=== PATIENT | female | born 1935 | race Caucasian/White ===

== ENCOUNTER 2018-03-26 09:20 | Emergency (ER) | payer MEDICARE, OTHER ==
[2018-03-26 09:34] VITALS: BP 163/84
[2018-03-26] MEDS ORDERED: Sodium Chloride 0.9% 1,000 ML IV STA (09:45)
[2018-03-26] MEDS ORDERED: Sodium Chloride 0.9% 10 ML Syringe FLUSH PRN (09:55)
[2018-03-26] MEDS ORDERED: Diatrizoate Meglumine/Diatrizoate Sodium 37% 120 ML Bottle PO ONE (09:55)
[2018-03-26] MEDS ORDERED: Iopamidol 612 MG/ML 100 ML Bottle IVPUSH ONE (09:55)
[2018-03-26] MEDS: Sodium Chloride 0.9% 10 ML Syringe FLUSH PRN ×2 (09:55→11:09)
--- NOTE | 2018-03-26 10:57 | EDM.PDOC ---
ED HPI GENERAL MEDICAL PROBLEM - General Chief Complaint: General Stated Complaint: ABDOMINAL ISSUES AND HBP Time Seen by Provider: 03/26/18 09:36 Source of Information: Reports: Patient, Family History Limitations: Reports: No Limitations - History of Present Illness INITIAL COMMENTS - FREE TEXT/NARRATIVE: The patient presents with nausea, vomiting and diarrhea. She also has some abdominal pain at times. This has been going on for the past 3 weeks. This all comes and goes. She also feels lightheaded at times. She is more lightheaded the past few days. She mostly feels it when she gets up. She has no fever, chills, cough, congestion, runny nose, headache, chest pain, shortness of breath, or dysuria. There has been no changes to her medications. She did not eat anything bad that she knows of. Eating or drinking does not affect it in any way. It is random when it comes. Onset: Gradual Duration: Week(s): (3) Location: Reports: Abdomen Quality: Reports: Sharp Severity: Mild Improves with: Reports: None Worsens with: Reports: None Associated Symptoms: Reports: Nausea/Vomiting. Denies: Chest Pain, Fever/Chills , Headaches, Shortness of Breath - Related Data Allergies Allergy/AdvReac Type Severity Reaction Status Date / Time No Known Allergies Allergy Verified 03/26/18 09:28 Home Meds: Home Meds Lisinopril 5 mg PO DAILY 07/29/15 [History] [place] 500 mg PO DAILY 12/30/15 [History] Brimonidine [Alphagan 0.2% Ophth Soln] 1 drop EYELF BEDTIME 12/30/15 [History] Calcium/Magnesium/Vit D3 [Calcium 500 MG] 1 each PO DAILY 12/30/15 [History] Cholecalciferol (Vitamin D3) [Vitamin D-3] 2,000 unit PO DAILY 12/30/15 [History ] Eye Drop. 1 drop EYELF BID 12/30/15 [History] Multivitamin [One Daily] 1 each PO DAILY 12/30/15 [History] [place]-3/DHA/Epa/Fish Oil [[place] 3 500 Softgel] 1 each PO DAILY 12/30/15 [History ] Ondansetron [Zofran ODT] 4 mg PO Q6H PRN #20 tab.dis 03/26/18 [Rx] Sulfamethoxazole/Trimethoprim [Bactrim Ds Tablet] 1 each PO BID #6 tablet [Rx] Past Medical History HEENT History: Reports: Cataract Cardiovascular History: Reports: Hypertension Genitourinary History: Reports: Urinary Incontinence Musculoskeletal History: Reports: Osteoarthritis - Infectious Disease History Infectious Disease History: Reports: Chicken Pox, Measles, Mumps - Past Surgical History HEENT Surgical History: Reports: Cataract Surgery Neurological Surgical History: Reports: C-Spine Social & Family History - Family History Family Medical History: Noncontributory - Tobacco Use Smoking Status *Q: Never Smoker - Caffeine Use Caffeine Use: Reports: Coffee, Tea - Recreational Drug Use Recreational Drug Use: No - Living Situation & Occupation Living situation: Reports: , Alone ED ROS GENERAL - Review of Systems Review Of Systems: See Below Constitutional: Reports: No Symptoms HEENT: Reports: No Symptoms Respiratory: Reports: No Symptoms Cardiovascular: Reports: Lightheadedness Endocrine: Reports: No Symptoms GI/Abdominal: Reports: Abdominal Pain, Diarrhea, Nausea, Vomiting : Reports: No Symptoms Musculoskeletal: Reports: No Symptoms Skin: Reports: No Symptoms Neurological: Reports: No Symptoms ED EXAM, GENERAL - Physical Exam Exam: See Below Exam Limited By: No Limitations General Appearance: Alert, No Apparent Distress Ears: Normal External Exam Nose: Normal Inspection Head: Atraumatic, Normocephalic Neck: Normal Inspection Respiratory/Chest: No Respiratory Distress, Lungs Clear, Normal Breath Sounds Cardiovascular: Regular Rate, Rhythm, No Edema, No Murmur GI/Abdominal: Soft, No Organomegaly, No Mass, Tender (Mild pain upon palpation to the LUQ) Extremities: Normal Inspection Neurological: Alert, Oriented, No Motor/Sensory Deficits EKG INTERPRETATION EKG Date: 03/26/18 Time: 09:57 Rhythm: NSR Rate (Beats/Min): 72 [place]: Normal P-Wave: Present QRS: RBBB ST-T: Normal QT: Normal Course - Vital Signs Last Recorded V/S: Last Vital Signs Temp 99.2 F 03/26/18 09:29 Pulse 72 03/26/18 09:29 Resp 18 03/26/18 09:29 BP 163/84 H 03/26/18 09:29 Pulse Ox 99 03/26/18 09:29 - Orders/Labs/Meds Orders: Active Orders 24 hr Category Date Time Status EKG Documentation Completion [RC] ASDIRECTED Care 03/26/18 09:46 Active Peripheral IV Care [RC] . DIRECTED Care 03/26/18 09:45 Active UA W/MICROSCOPIC [URIN] Stat Lab 03/26/18 10:35 Ordered Sodium Chloride 0.9% [Saline Flush] Med 03/26/18 09:45 Active 10 ml FLUSH ASDIRECTED PRN Sodium Chloride 0.9% [Saline Flush] Med 03/26/18 09:55 Active 10 ml FLUSH ONETIME PRN Peripheral IV Insertion Adult [OM.PC] Stat Oth 03/26/18 09:45 Ordered EKG 12 Lead [EK] Stat Ther 03/26/18 09:46 Ordered Medication Orders Sodium Chloride (Saline Flush) 10 ml FLUSH ASDIRECTED PRN PRN Reason: Keep Vein Open Last Admin: 03/26/18 11:09 Dose: 10 ml Admin: 03/26/18 09:55 Dose: 10 ml Sodium Chloride (Saline Flush) 10 ml FLUSH ONETIME PRN PRN Reason: IV FLUSH Labs: Laboratory Tests 03/26/18 03/26/18 03/26/18 Range/Units 09:35 09:35 10:35 WBC 7.09 (3.98-10.04) K/mm3 RBC 4.52 (3.98-5.22) M/mm3 Hgb 13.2 (11.2-15.7) gm/L Hct 40.8 (34.1-44.9) % MCV 90.3 (79.4-94.8) fl MCH 29.2 (25.6-32.2) pg MCHC 32.4 (32.2-35.5) g/dl RDW Std Deviation 41.5 (36.4-46.3) fL Plt Count 254 (182-369) K/mm3 MPV 10.1 (9.4-12.3) fl Neut % (Auto) 73.0 H (34.0-71.1) % Lymph % (Auto) 16.8 L (19.3-51.7) % [place] % (Auto) 8.5 (4.7-12.5) % Eos % (Auto) 1.3 (0.7-5.8) Baso % (Auto) 0.1 (0.1-1.2) % Neut # (Auto) 5.18 (1.56-6.13) K/mm3 Lymph # (Auto) 1.19 (1.18-3.74) K/mm3 [place] # (Auto) 0.60 H (0.24-0.36) K/mm3 Eos # (Auto) 0.09 (0.04-0.36) K/mm3 Baso # (Auto) 0.01 (0.01-0.08) K/mm3 Sodium 140 (136-145) mEq/L Potassium 4.1 (3.5-5.1) mEq/L Chloride 104 (98-107) mEq/L Carbon Dioxide 31 (21-32) mEq/L Anion Gap 9.1 (5-15) BUN 17 (7-18) mg/dL Creatinine 1.0 (0.55-1.02) mg/dL Est Cr Clr Drug Dosing 34.02 mL/min Estimated GFR (MDRD) 53 (>60) mL/min BUN/Creatinine Ratio 17.0 (14-18) Glucose 94 (83-115) mg/dL Calcium 9.7 (8.5-10.1) mg/dL Total Bilirubin 0.6 (0.2-1.0) mg/dL AST 19 (15-37) U/L ALT 19 (14-59) U/L Alkaline Phosphatase 71 (46-116) U/L Troponin I < 0.017 (0.00-0.056) ng/mL Total Protein 7.0 (6.4-8.2) g/dl Albumin 3.5 (3.4-5.0) g/dl Globulin 3.5 gm/dL Albumin/Globulin Ratio 1.0 (1-2) Lipase 131 (73-393) U/L Urine Color Light yellow (Yellow) Urine Appearance Clear (Clear) Urine pH 7.5 (5.0-8.0) Ur Specific [place] 1.020 (1.005-1.030) Urine Protein Negative (Negative) Urine Glucose (UA) Negative (Negative) Urine Ketones Negative (Negative) Urine Occult Blood Negative (Negative) Urine Nitrite Negative (Negative) Urine Bilirubin Negative (Negative) Urine Urobilinogen 0.2 (0.2-1.0) Ur Leukocyte Esterase Negative (Negative) Urine RBC 0-5 (0-5) /hpf Urine WBC Not seen (0-5) /hpf Ur Epithelial Cells Not seen (0-5) /hpf Urine Bacteria Not seen (FEW) /hpf Urine Mucus Not seen (FEW) /hpf Meds: Medications Generic Name Dose Route Start Last Admin Trade Name Kuldip PRN Reason Stop Dose Admin Sodium Chloride 10 ml 03/26/18 09:45 03/26/18 11:09 Saline Flush FLUSH 10 ml ASDIRECTED PRN Administration Keep Vein Open Sodium Chloride 10 ml 03/26/18 09:55 Saline Flush FLUSH ONETIME PRN IV FLUSH Discontinued Medications Generic Name Dose Route Start Last Admin Trade Name Freq PRN Reason Stop Dose Admin Diatrizoate Meglum/Diatrizoate Sod 120 ml 03/26/18 09:55 03/26/18 11:09 Gastrografin 37% PO 03/26/18 09:56 90 ml ONETIME ONE Administration Sodium Chloride 1,000 mls @ 1,000 mls/hr 03/26/18 09:45 03/26/18 09:54 Normal Saline IV 03/26/18 10:44 1,000 mls/hr .BOLUS STA Administration Iopamidol 100 ml 03/26/18 09:55 03/26/18 11:09 Isovue-300 (61%) IVPUSH 03/26/18 09:56 100 ml ONETIME ONE Administration - Re-Assessments/Exams Free Text/Narrative Re-Assessment/Exam: 03/26/18 11:01 Her BP did go down when sitting up and standing up. I ordered an IV NS 500ml bolus, EKG, labs, UA and a CT of her abdomen and pelvis. Her EKG shows a RBBB with no acute changes. 03/26/18 12:39 Her CBC and CMP look good. Her UA shows no UTI. Her CT shows pyelocaliectasis within both kidneys. Contrast seen within the distal ureters on delayed images and this pyelocaliectasis is felt to be incidental. She feels better. I feel she was dehydrated. I feel she has an infectious diarrhea. I will get a stool sample and I will start her on some bactrim BID and some zofran. I will also have her take half of her lisinopril for a week. Departure - Departure Time of Disposition: 12:45 Disposition: Home, Self-Care 01 Condition: Good Clinical Impression: Dehydration Diarrhea Qualifiers: Diarrhea type: infectious Qualified Code(s): A09 - Infectious gastroenteritis and colitis, unspecified Nausea and vomiting Qualifiers: Vomiting type: unspecified Vomiting Intractability: non-intractable Qualified Code(s): R11.2 - Nausea with vomiting, unspecified - Discharge Information Prescriptions: Ondansetron [Zofran ODT] 4 mg PO Q6H PRN #20 tab.dis PRN Reason: Nausea\vomiting Sulfamethoxazole/Trimethoprim [Bactrim Ds Tablet] 1 each PO BID #6 tablet Referrals: Esperanza Lockwood NP [Primary Care Provider] - 1 Week Forms: ED Department Discharge Additional Instructions: Take 1/2 of your lisinopril for 1 week and then continue your regular dose after. Drink plenty of fluids. Please return if you are worse. - My Orders Last 24 Hours: My Active Orders 03/26/18 09:45 Peripheral IV Care [RC] . DIRECTED Sodium Chloride 0.9% [Saline Flush] 10 ml FLUSH ASDIRECTED PRN Peripheral IV Insertion Adult [OM.PC] Stat 03/26/18 09:46 EKG Documentation Completion [RC] ASDIRECTED EKG 12 Lead [EK] Stat 03/26/18 09:55 Sodium Chloride 0.9% [Saline Flush] 10 ml FLUSH ONETIME PRN 03/26/18 10:35 UA W/MICROSCOPIC [URIN] Stat - Assessment/Plan Last 24 Hours: My Active Orders 03/26/18 09:45 Peripheral IV Care [RC] . DIRECTED Sodium Chloride 0.9% [Saline Flush] 10 ml FLUSH ASDIRECTED PRN Peripheral IV Insertion Adult [OM.PC] Stat 03/26/18 09:46 EKG Documentation Completion [RC] ASDIRECTED EKG 12 Lead [EK] Stat 03/26/18 09:55 Sodium Chloride 0.9% [Saline Flush] 10 ml FLUSH ONETIME PRN 03/26/18 10:35 UA W/MICROSCOPIC [URIN] Stat
--- NOTE | 2018-03-26 11:39 | CT ---
CT abdomen and pelvis Technique: Multiple axial sections were obtained from above the dome of the diaphragm inferiorly through the pubic symphysis. Intravenous and oral contrast was given. Delayed images were obtained through the bladder. Comparison: No prior abdominal CT exam. Findings: Small portion of the visualized lung bases shows nothing acute. Liver shows no focal parenchymal abnormality. Gallbladder contains no calcified gallstones. Spleen appears within normal limits. Adrenal glands show no nodule. Pyelocaliectasis is seen within both kidneys. Delayed images shows contrast within both distal ureters and bladder. Pancreas is atrophied. Aorta shows atherosclerotic change without aneurysm. No retroperitoneal adenopathy is seen. Appendix is seen which is normal in size. No pelvic mass or adenopathy is seen. Numerous diverticuli are seen within the sigmoid colon without inflammatory change of diverticulitis being seen. Lesser diverticuli are seen throughout other portions of the colon. Scoliosis and degenerative change noted within the spine. Small fat-containing umbilical hernia is noted. Impression: 1. Pyelocaliectasis within both kidneys. Contrast seen within the distal ureters on delayed images and this pyelocaliectasis is felt to be incidental. 2. Other incidental findings. Nothing acute is appreciated on CT study of the abdomen and pelvis. Diagnostic code #2
== END 2018-03-26 13:05 | disposition home or self-care (01) ==
LOC: JD.ED 09:20
DX: E86.0 Dehydration (principal); A09 Infectious gastroenteritis and colitis, unspecified; I10 Essential (primary) hypertension; Z79.899 Other long term (current) drug therapy
CPT/HCPCS: 36415; 74177; 80053; 81001; 83690; 84484; 85025; 87046; 87328; 87329; 87493; 89055; 93005; 96360; 96361; 99284; J7040; J7050; Q9963; Q9967; 87427

== ENCOUNTER 2020-01-17 19:15 | Emergency (ER) | payer MEDICARE, OTHER ==
[2020-01-17 19:28] VITALS: BP 207/107; PULSE 78
--- NOTE | 2020-01-17 20:06 | EDM.PDOC ---
ED HPI GENERAL MEDICAL PROBLEM - General Chief Complaint: Head Injury Stated Complaint: FALL-EYE AND WRIST INJURY Time Seen by Provider: 01/17/20 19:39 Source of Information: Reports: Patient History Limitations: Reports: No Limitations - History of Present Illness INITIAL COMMENTS - FREE TEXT/NARRATIVE: This is a 84-year-old female. Apparently she was going down the steps into the basement when she slipped and fell and she struck the left side of her head and injured her left wrist. She went to the walk-in clinic and they apparently did skull x-rays suggest that she might have a facial fracture and then noted she had a wrist fracture and they put her in a splint. They told her to come to the ER for evaluation due to the facial fracture. The patient does take an aspirin daily and she says is because she has high blood pressure. The patient states she had no loss of consciousness when she fell. The daughter states that she was called shortly after she fell by the patient and that is when they took her to the walk-in clinic. He does not complain of a headache though she does complain of some neck soreness and some left wrist soreness. She denies any back pain denies any chest or rib pain denies any right upper extremity or lower extremity injury and denies any hip pain. She has been walking by herself since the injury and denies any lower extremity pain. The patient states she is up-to-date with her tetanus. Left Wrist Pain Score (Numeric/FACES): 5 - Related Data Allergies Allergy/AdvReac Type Severity Reaction Status Date / Time No Known Allergies Allergy Verified 01/17/20 19:28 Home Meds: Home Meds Lisinopril 5 mg PO DAILY 07/29/15 [History] [place] 500 mg PO DAILY 12/30/15 [History] Brimonidine [Alphagan 0.2% Ophth Soln] 1 drop EYELF BEDTIME 12/30/15 [History] Calcium/Magnesium/Vit D3 [Calcium 500 MG] 1 each PO DAILY 12/30/15 [History] Cholecalciferol (Vitamin D3) [Vitamin D-3] 2,000 unit PO DAILY 12/30/15 [History ] Eye Drop. 1 drop EYELF BID 12/30/15 [History] Multivitamin [One Daily] 1 each PO DAILY 12/30/15 [History] [place]-3/DHA/Epa/Fish Oil [[place] 3 500 Softgel] 1 each PO DAILY 12/30/15 [History ] Ondansetron [Zofran ODT] 4 mg PO Q6H PRN #20 tab.dis 03/26/18 [Rx] Sulfamethoxazole/Trimethoprim [Bactrim Ds Tablet] 1 each PO BID #6 tablet [Rx] Hydrocodone/Acetaminophen [Hydrocodon-Acetaminophen 5-325] 1 each PO Q6H PRN # 15 tablet 01/17/20 [Rx] Past Medical History HEENT History: Reports: Cataract Cardiovascular History: Reports: Hypertension Genitourinary History: Reports: Urinary Incontinence Musculoskeletal History: Reports: Osteoarthritis - Infectious Disease History Infectious Disease History: Reports: Chicken Pox, Measles, Mumps - Past Surgical History HEENT Surgical History: Reports: Cataract Surgery Neurological Surgical History: Reports: C-Spine Social & Family History - Family History Family Medical History: Noncontributory - Tobacco Use Smoking Status *Q: Never Smoker - Caffeine Use Caffeine Use: Reports: Coffee - Living Situation & Occupation Living situation: Reports: , Alone ED ROS GENERAL - Review of Systems Review Of Systems: See Below Constitutional: Denies: Fever, Chills HEENT: Reports: Other (Left facial bruising and orbit bruising) Respiratory: Denies: Shortness of Breath, Cough Cardiovascular: Denies: Chest Pain Endocrine: Reports: No Symptoms GI/Abdominal: Denies: Abdominal Pain : Reports: No Symptoms Musculoskeletal: Reports: Neck Pain, Other (Left wrist pain, facial pain) Skin: Reports: Bruising, Other (Facial bruising and abrasions) Neurological: Denies: Confusion, Headache, Syncope, Trouble Speaking, Difficulty Walking, Weakness Psychiatric: Reports: No Symptoms Hematologic/Lymphatic: Reports: No Symptoms ED EXAM, HEAD INJURY - Physical Exam Exam: See Below Exam Limited By: No Limitations General Appearance: Alert, WD/WN, No Apparent Distress Head: Other (He has left orbital bruising and swelling with a radiation to the left forehead as well. The trauma appears to encompass the entire orbit area. Her lids are slightly swollen. She has full EOMs of her left eye without any entrapment noted. There is no nasal bleeding noted. She denies any TMJ symptoms or jaw symptoms. She did not bite her tongue or chip any of her teeth. There is no right-sided trauma or posterior trauma to her head.) Eyes: Bilateral Eye: EOMI, Normal Inspection, Other (Normal pupillary reflex) Ears: Normal External Exam, Normal Canal, Normal TMs, Other (No hemotympanum) Nose: Normal Inspection, Other (Bridge of the nasal area is tender). No: Active Bleeding, Dried Blood Throat/Mouth: Normal Inspection, Normal Lips, Normal Teeth, Normal Oropharynx, No Airway Compromise Neck: Other (The neck is supple and mobile but she does complain of soreness of the neck, posterior cervical spine is not tender and there is no step-off noted) Respiratory: No Respiratory Distress, Lungs Clear, Other (No rib tenderness bilaterally) GI/Abdominal Exam: Soft, Non-Tender Back Exam: Normal Inspection, Full Range of Motion, Other (Does not appear to have any back tenderness or trauma) Extremities: Other (Left wrist is splinted but she denies any hand pain denies any elbow or shoulder pain denies any right upper extremity injury, she also denies any lower extremity injury or hip pain and she has been ambulatory since the fall) Neurologic: No Motor/Sensory Deficits, Alert, Normal Mood/Affect, Oriented x 3 Skin: Normal Color, Warm/Dry - Niraj Coma Score Best Eye Response ([place]): (4) Open Spontaneously Best Verbal Response ([place]): (5) Oriented Best Motor Response ([place]): (6) Obeys Commands [place] Total: 15 Course - Vital Signs Last Recorded V/S: Last Vital Signs Temp 97.9 F 01/17/20 19:24 Pulse 78 01/17/20 19:24 Resp 20 01/17/20 19:24 BP 207/107 H 01/17/20 19:24 Pulse Ox 100 01/17/20 19:24 - Orders/Labs/Meds Orders: Active Orders 24 hr Category Date Time Status Cervical Spine wo Cont [CT] Stat Exams 01/17/20 20:10 Taken Head wo Cont [CT] Stat Exams 01/17/20 20:08 Taken Max Facial Sinus wo Cont [CT] Stat Exams 01/17/20 20:08 Taken - Radiology Interpretation Free Text/Narrative:: CT scan of the cervical spine shows fusion of 5 and 6 and the hardware is intact with no acute fractures just some degenerative changes. CT scan of the head shows no acute intracranial abnormalities. CT scan of the face shows a left facial periorbital and frontal scalp soft tissue injury but there are no acute facial fractures. Sprays sent over by the walk-in clinic does show a nasal fracture but no other acute fractures. Wrist has a radial styloid fracture noted and she is splinted. - Re-Assessments/Exams Free Text/Narrative Re-Assessment/Exam: 01/17/20 21:36 I spoke to the family and the patient regarding the CT scan results. She is going to follow-up with Dr. Patel for her left wrist and follow-up with her family doctor for the facial contusion. She just wants to be on some Tylenol for the pain but I will provide a limited prescription for some hydrocodone uppercase the Tylenol does not seem to work. In the meantime she is to use a cool compress to her face and ice to her wrist and be careful. She is going home with daughter so she will not be alone tonight. I did reassure the family that she can sleep tonight since there is no intracranial abnormalities. Departure - Departure Time of Disposition: 21:38 Disposition: Home, Self-Care 01 Condition: Fair Clinical Impression: Nondisplaced fracture of left radial styloid process, initial encounter for closed fracture Facial contusion Qualifiers: Encounter type: initial encounter Qualified Code(s): S00.83XA - Contusion of other part of head, initial encounter Contusion of left orbital tissues Qualifiers: Encounter type: initial encounter Qualified Code(s): S05.12XA - Contusion of eyeball and orbital tissues, left eye, initial encounter Forehead contusion Qualifiers: Encounter type: initial encounter Qualified Code(s): S00.83XA - Contusion of other part of head, initial encounter Cervical sprain Qualifiers: Encounter type: initial encounter Qualified Code(s): S13.9XXA - Sprain of joints and ligaments of unspecified parts of neck, initial encounter Nasal bones, closed fracture Qualifiers: Encounter type: initial encounter Qualified Code(s): S02.2XXA - Fracture of nasal bones, initial encounter for closed fracture - Discharge Information *PRESCRIPTION DRUG MONITORING PROGRAM REVIEWED*: No *COPY OF PRESCRIPTION DRUG MONITORING REPORT IN PATIENT CANELO: No Prescriptions: Hydrocodone/Acetaminophen [Hydrocodon-Acetaminophen 5-325] 1 each PO Q6H PRN # 15 tablet PRN Reason: Pain Instructions: Nasal Fracture, [id number], Head Injury, Adult, [id number], Facial or Scalp Contusion, Wrist Fracture Treated With Immobilization, Easy-to- Read Referrals: Esperanza Lockwood NP [Primary Care Provider] - Gus Patel MD [Physician] - Forms: ED Department Discharge Additional Instructions: Use a cool compress to the face on and off over the next 48 hours, use an ice pack to the left wrist on and off for the next 48 hours, follow-up with Dr. Patel by calling his office Monday for an appointment to be seen for the left wrist fracture, call your family doctor Monday for reevaluation of the facial contusion to make sure it heals appropriately, take Tylenol as needed for pain which you may use the hydrocodone if the Tylenol does not seem to work to help with the pain, you may sleep tonight, stay with your family over the weekend, return to the ER if your symptoms worsen Sepsis Event Note - Evaluation Sepsis Screening Result: No Definite Risk - Focused Exam Vital Signs: Vital Signs Temp Pulse Resp BP Pulse Ox 01/17/20 19:24 97.9 F 78 20 207/107 H 100 Date Exam was Performed: 01/17/20 Time Exam was Performed: 21:30 - My Orders Last 24 Hours: My Active Orders 01/17/20 20:08 Head wo Cont [CT] Stat Max Facial Sinus wo Cont [CT] Stat 01/17/20 20:10 Cervical Spine wo Cont [CT] Stat - Assessment/Plan Last 24 Hours: My Active Orders 01/17/20 20:08 Head wo Cont [CT] Stat Max Facial Sinus wo Cont [CT] Stat 01/17/20 20:10 Cervical Spine wo Cont [CT] Stat
[2020-01-17] MEDS ORDERED: Acetaminophen 325 MG Tab PO ONE (21:36)
--- NOTE | 2020-01-19 13:52 | CT ---
CT cervical spine Technique: Multiple axial sections were obtained from above C1 inferiorly to the mid T2 level. Reconstructed sagittal and coronal images were reviewed. Comparison: No prior cervical spine imaging. Findings: Mastoid sinuses show nothing acute. Degenerative change is noted between the dens and anterior arch of C1. Disc space narrowing is noted at C3-C4 with severe disc space narrowing at C4-C5. Prior surgery is noted C5-C6 anterior plate and screws. Severe disc space narrowing at C6-C7 is noted. Scattered anterior osteophytes are seen throughout the cervical spine. Severe bilateral neural foraminal stenosis is noted at C3-C4. Severe left sided neural foraminal stenosis is noted at C4-C5 with mild right-sided neural foraminal stenosis at C4-C5. Moderate left-sided neural foraminal stenosis inoted at C6-C7 with severe right-sided neural foraminal stenosis noted at C6-C7. Other neural foramina are patent. Mild central canal stenosis is noted at C4-C5. No fracture is appreciated. No abnormal subluxation is seen. Diffuse degenerative change is noted throughout the apophyseal joints. Nodule is noted within the right thyroid gland which is noted on prior chest CT of 12/30/15 and therefore is incidental. Impression: 1. Prior surgery. Diffuse degenerative change. 2. Nothing acute is appreciated. Diagnostic code #2 I agree with preliminary report issued by [facility] ([facility] preliminary report dictated on 01/17/20, 10:28 PM Central Time)
--- NOTE | 2020-01-19 13:52 | CT ---
CT facial bones Technique: Multiple axial sections through the facial bones were obtained. Intravenous contrast was not utilized. Comparison: No facial bone study is available. Findings: Soft tissue swelling is seen within the left frontal scalp, left periorbital region and left cheek. Nasal septal deviation is noted which appears chronic. No acute paranasal sinus disease is seen. No facial bone fracture is seen. Impression: 1. Soft tissue swelling on the left side as noted above. 2. No facial bone fracture is identified. Diagnostic code #3 Agree with preliminary report issued by [facility] ([facility] preliminary report dictated on 01/17/20, 10:19 PM Central Time) Study was dictated in [place] Standard Time
--- NOTE | 2020-01-19 13:53 | CT ---
Head CT Technique: Multiple axial sections through the brain were obtained. Intravenous contrast was not utilized. Comparison: No prior intracranial imaging is available. Findings: Soft tissue swelling is noted within the left periorbital region and left forehead scalp. Ventricles along with basal cisterns and sulci over the convexities are moderately prominent. Atherosclerotic calcification is noted within the carotid siphon. Mild areas of diminished density are scattered within the periventricular white matter which most likely is due to small vessel ischemic demyelination change. No other abnormal parenchymal densities are seen. No evidence of intracranial hemorrhage. No midline shift or mass effect is seen. Visualized mastoid sinuses and visualized paranasal sinuses show nothing acute. No acute calvarial abnormality is appreciated. Impression: 1. Soft tissue swelling within the left periorbital region and left frontal scalp. 2. Senescent change as noted above. 3. No acute intracranial abnormality is identified. Diagnostic code #3 Agree with preliminary report issued by [facility] ([facility] preliminary report dictated on 01/17/20, 10:14 PM Central Time) Study was dictated in [place] Standard Time
== END 2020-01-17 22:00 | disposition home or self-care (01) ==
LOC: JD.ED 19:15
DX: S52.515A Nondisplaced fracture of left radial styloid process, initial encounter for closed fracture (principal); S02.2XXA Fracture of nasal bones, initial encounter for closed fracture; S13.4XXA Sprain of ligaments of cervical spine, initial encounter; S05.12XA Contusion of eyeball and orbital tissues, left eye, initial encounter; I10 Essential (primary) hypertension; Z79.899 Other long term (current) drug therapy; W01.10XA Fall on same level from slipping, tripping and stumbling with subsequent striking against unspecified object, initial encounter
CPT/HCPCS: 70450; 70486; 72125; 99283; A9270